=== PATIENT | male | born 1985 | race Asian ===

== ENCOUNTER 2022-08-20 12:52 | Emergency (ER) | payer MEDICAID ==
--- NOTE | 2022-08-20 13:10 | NUR ---
PATIENT TRIAGED. PT STABLE. PT WAITING IN ER LOBBY. DR MENDEZ AWARE OF PT.
[2022-08-20 13:11] VITALS: BP_SYST 146
--- NOTE | 2022-08-20 13:50 | NUR ---
PT PLACED IN BED 2, REPORT GIVEN TO DR MENDEZ AT BEDSIDE
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
[2022-08-20] MEDS ORDERED: KETOROLAC TROMETHAMINE 30 MG VIAL IM ONE (14:45)
[2022-08-20] MEDS ORDERED: CYCL10TA24 PO (15:23)
[2022-08-20] MEDS ORDERED: IBUP-1970 PO (15:23)
[2022-08-20] MEDS ORDERED: ACET-2634 PO (15:23)
[2022-08-20 15:47] VITALS: BP_SYST 148
--- NOTE | 2022-08-20 15:50 | NUR ---
Patient given written and verbal discharge instructions and verbalizes understanding. ER MD discussed with patient the results and treatment provided. Patient in stable condition. ID arm band removed. Rx of acetaminophen, cyclobenzaprine, and ibuprofen given. Patient educated on pain management and to follow up with PMD. Pain Scale 4 out of 10 . Opportunity for questions provided and answered. Medication side effect fact sheet provided.
--- NOTE | 2022-08-20 15:52 | NUR ---
Placed splint on patient with primary RN. 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 Taught how to take each one and when appropriate to drive, bike or operate heavy equipment.
== END 2022-08-20 15:50 | disposition home or self-care (01) ==
LOC: SED 12:52
DX: S43.122A Dislocation of left acromioclavicular joint, 100%-200% displacement, initial encounter (principal); Z88.5 Allergy status to narcotic agent; Z79.899 Other long term (current) drug therapy; V18.0XXA Pedal cycle driver injured in noncollision transport accident in nontraffic accident, initial encounter; Y93.89 Activity, other specified; Y92.89 Other specified places as the place of occurrence of the external cause; Y99.8 Other external cause status
CPT/HCPCS: 99283; 73030; 96372; J1885

== ENCOUNTER 2023-08-11 02:55 | Emergency (ER) | payer MEDICAID ==
[~2023-08-11] VITALS: Ht 175.3 cm; Wt 66.7 kg
[~2023-08-11 02:55] MED LIST: ACET-2634 PO; CYCL10TA24 PO; IBUP-1970 PO
[2023-08-11 03:00] VITALS: BP_SYST 153; PULSE 124; RESP 18; TEMP 98.3; O2SAT 97
[2023-08-11] MEDS: LABETALOL HCL 20 MG/4 ML CARTRIDGE IVP ONE (03:15)
[2023-08-11] MEDS: fentaNYL CITRATE/PF 100 MCG/2 ML AMP IVP ONE (03:36)
[2023-08-11] MEDS: NS 1000 ML IV.SOLN IV ONE (03:46)
[2023-08-11 04:41] LABS: ALANINE AMINOTRANSFERASE 172 U/L (12-78); ALBUMIN 4.2 g/dL (3.4-4.8); ANION GAP 20 (5-15); ASPARTATE AMINOTRANSFERASE 126 U/L (10-37); BILIRUBIN,DIRECT 0.2 mg/dL (0.0-0.3); CALCIUM 9.6 mg/dL (8.4-11.0); CARBON DIOXIDE 20 mmol/L (23-29); CHLORIDE 101 mmol/L (98-107); CREATININE 0.87 mg/dL (0.55-1.30); GFR AFRICAN AMERICAN 125 mL/min (>90); GLUCOSE 105 mg/dL (74-106); POTASSIUM 3.5 mmol/L (3.5-5.1); SODIUM SERUM 141 mmol/L (136-145); TOTAL BILIRUBIN 0.7 mg/dL (0.0-1.0); TOTAL PROTEIN, SERUM 8.2 g/dL (6.4-8.3); UREA NITROGEN, BLOOD 8 mg/dL (8-21)
[2023-08-11 04:42] LABS: GFR NON AFRICAN-AMERICAN 103 mL/min (>90)
[2023-08-11 04:45] LABS: PROTHROMBIN TIME 10.1 SECS (9.5-12.5)
[2023-08-11] MEDS: KETOROLAC TROMETHAMINE 30 MG VIAL IVP ONE (05:06)
[2023-08-11 05:15] LABS: BASOPHILS % (AUTO) 0.4 % (0.0-2.0); EOSINOPHILS % (AUTO) 0.3 % (0.0-4.0); HEMATOCRIT 47.7 % (36-54); HEMOGLOBIN 16.6 g/dL (14.0-18.0); LYMPHOCYTES # (AUTO) 0.9 K/uL (1.0-5.5); MEAN CORPUSCULAR HEMOGLOBIN 35 pg (27-31); MEAN CORPUSCULAR HGB CONC 35 % (32-36); MEAN CORPUSCULAR VOLUME 99 fL (79.0-98.0); MONOCYTES # (AUTO) 0.8 K/uL (0.0-1.0); MONOCYTES % (AUTO) 6.5 % (1.7-9.3); NEUTROPHILS # (AUTO) 9.8 K/uL (1.8-7.7); NEUTROPHILS % (AUTO) 84.8 % (40.0-70.0); PLATELET COUNT (AUTO) 310 K/uL (130-430); RED BLOOD CELL COUNT(AUTO) 4.81 MIL/uL (4.2-6.2); RED CELL DISTRIBUTION WIDTH 12.1 % (9.0-15.0); WHITE BLOOD COUNT (AUTO) 11.6 K/uL (4.8-10.8)
[2023-08-11] MEDS ORDERED: PIPERACILLIN/TAZOBACTAM 4.5 GM/VIAL (ZOSYN) IV ONE (05:22)
[2023-08-11] MEDS: LORazepam 2 MG/ML VIAL IVP ONE (05:37)
[2023-08-11] MEDS: PIPERACILLIN/TAZO 4.5 GM in NS 100 ML IV ONE (05:38)
[2023-08-11] MEDS: NACL 0.9% 1,000 ML IV ONE (08:12)
[2023-08-11 08:56] LABS: BILIRUBIN,URINE NEGATIVE (NEGATIVE); BLOOD, URINE NEGATIVE (NEGATIVE); COLOR,URINE YELLOW (YELLOW); GLUCOSE,URINE NEGATIVE (NEGATIVE); KETONES,URINE 2+ (NEGATIVE); LEUKOCYTE ESTERASE ,URINE NEGATIVE (NEGATIVE); NITRITE, URINE NEGATIVE (NEGATIVE); PH,URINE 5.5 (5.0-8.0); PROTEIN URINE TRACE (NEGATIVE); UROBILINOGEN,URINE 0.2 (0.2-1.0)
[2023-08-11] MEDS ORDERED: ACET-2634 PO (09:05)
[2023-08-11 09:10] LABS: CLARITY/URINE SLIGHTLY HAZY (CLEAR)
[2023-08-11 09:11] LABS: BACTERIA,URINE None Seen /HPF (None Seen); RBC,URINE 0-3 /HPF (0-3); URINE AMORPHOUS URATE 2+ /HPF (None Seen); WBC,URINE NONE SEEN /HPF (0-3)
[2023-08-11 09:19] LABS: BARBITURATE, URINE NEGATIVE (NEG <=200); BENZODIAZEPINE, URINE POSITIVE (NEG <=150); CANNABINOID, URINE POSITIVE (NEG <=50); COCAINE, URINE NEGATIVE (NEG <=150); METHAMPHETAMINES SCREEN,URINE NEGATIVE (NEG <=500); OPIATE, URINE NEGATIVE (NEG <=100); PHENCYCLIDINE SCREEN,URINE NEGATIVE (NEG <=25); UR TRICYCLIC ANTIDEPRESSANTS NEGATIVE (NEG <=300); URINE AMPHETAMINE NEGATIVE (NEG <=500); URINE METHADONE NEGATIVE (NEG <=200); URINE OXYCODONE SCREEN NEGATIVE (NEG <=100)
[2023-08-11 09:29] VITALS: BP_SYST 116; PULSE 68; RESP 18; TEMP 98.7; O2SAT 96
== END 2023-08-11 09:29 | disposition home or self-care (01) ==
LOC: SED 02:55
DX: A41.9 Sepsis, unspecified organism (principal); R51.9 Headache, unspecified; R11.0 Nausea; Z88.5 Allergy status to narcotic agent; Z79.899 Other long term (current) drug therapy
CPT/HCPCS: 99285; 70450; 96365; 96375; 96361; 71045; 80307; 80076; 80048; 81001; 85025; 85610; 85730; 87040; 87086; 84484; 36415; 93005; 72125; 83605; J1885; J2060; J2543; J3010; J7030; 81000; 81015

== ENCOUNTER 2023-09-11 14:23 | Inpatient (IN) | payer MEDICAID ==
[~2023-09-11] VITALS: Ht 175.3 cm; Wt 63.0 kg
[2023-09-11 14:30] VITALS: BP_SYST 132; PULSE 114; RESP 20; TEMP 98.3; O2SAT 96
[2023-09-11 15:09] LABS: BASOPHILS % (AUTO) 0.2 % (0.0-2.0); LYMPHOCYTES # (AUTO) 0.8 K/uL (1.0-5.5); LYMPHOCYTES % (AUTO) 3.3 % (20.5-51.5); MEAN CORPUSCULAR HEMOGLOBIN 34 pg (27-31); MEAN CORPUSCULAR HGB CONC 33 % (32-36); MEAN CORPUSCULAR VOLUME 101 fL (79.0-98.0); MONOCYTES # (AUTO) 0.6 K/uL (0.0-1.0); MONOCYTES % (AUTO) 2.6 % (1.7-9.3); NEUTROPHILS # (AUTO) 22.3 K/uL (1.8-7.7); NEUTROPHILS % (AUTO) 93.9 % (40.0-70.0); PLATELET COUNT (AUTO) 310 K/uL (130-430); RED BLOOD CELL COUNT(AUTO) 4.43 MIL/uL (4.2-6.2); RED CELL DISTRIBUTION WIDTH 12.2 % (9.0-15.0); WHITE BLOOD COUNT (AUTO) 23.7 K/uL (4.8-10.8)
[2023-09-11] MEDS: NACL 0.9% 1,000 ML IV ONE (15:09)
[2023-09-11] MEDS: KETOROLAC TROMETHAMINE 30 MG VIAL IVP ONE (15:37)
[2023-09-11 15:59] LABS: ALBUMIN 4.4 g/dL (3.4-4.8); BILIRUBIN,DIRECT 0.4 mg/dL (0.0-0.3); CALCIUM 8.9 mg/dL (8.4-11.0); CREATININE 1.11 mg/dL (0.55-1.30); POTASSIUM 4.2 mmol/L (3.5-5.1); TOTAL BILIRUBIN 1.2 mg/dL (0.0-1.0); TOTAL PROTEIN, SERUM 8.4 g/dL (6.4-8.3)
[2023-09-11 16:20] LABS: BILIRUBIN,URINE NEGATIVE (NEGATIVE); CLARITY/URINE CLEAR (CLEAR); COLOR,URINE YELLOW (YELLOW); GLUCOSE,URINE NEGATIVE (NEGATIVE); KETONES,URINE 3+ (NEGATIVE); LEUKOCYTE ESTERASE ,URINE NEGATIVE (NEGATIVE); NITRITE, URINE NEGATIVE (NEGATIVE); PROTEIN URINE TRACE (NEGATIVE); UROBILINOGEN,URINE 0.2 (0.2-1.0)
[2023-09-11 16:26] LABS: BLOOD, URINE TRACE (NEGATIVE)
[2023-09-11 16:47] LABS: RBC,URINE 0-3 /HPF (0-3); WBC,URINE 0-3 /HPF (0-3)
[2023-09-11 16:48] LABS: BACTERIA,URINE FEW /HPF (None Seen); FINE GRANULAR CASTS,URINE 0-10 /LPF (None Seen); MUCUS,URINE 1+ /LPF (None Seen)
[2023-09-11] MEDS ORDERED: PIPERACILLIN/TAZOBACTAM 3.375 GM/VIAL (ZOSYN) IV ONE (17:53)
[2023-09-11] MEDS: PIPERACILLIN/TAZO 3.375 GM in NS 50 ML IV ONE (17:56)
[2023-09-11 21:45] VITALS: BP_SYST 121; PULSE 92; RESP 18; TEMP 98.8; O2SAT 97
[2023-09-11 21:49] VITALS: BP_SYST 121; PULSE 92; RESP 18; TEMP 98.8
[2023-09-11 22:45] VITALS: O2SAT 97
[2023-09-11] MEDS: D5/0.45 NS 1,000 ML IV ONE (23:08)
[2023-09-11] MEDS ORDERED: ACETAMINOPHEN 325 MG TABLET PO PRN (23:15)
[2023-09-11] MEDS ORDERED: ONDANSETRON HCL 4 MG/2 ML VIAL IVP PRN (23:15)
[2023-09-11] MEDS: traZODone HCL 50 MG TABLET (DESYREL) PO PRN (23:21)
[2023-09-11] MEDS: D5/0.45 NS 1,000 ML IV SCH (23:52)
[2023-09-12 00:30] VITALS: BP_SYST 126; PULSE 71; RESP 18; TEMP 98.9
[2023-09-12] MEDS: PIPERACILLIN/TAZO 3.375 GM in D5W 50 ML IV SCH (05:50)
[2023-09-12] MEDS: PIPERACILLIN/TAZOBACTAM 3.375 GM/VIAL (ZOSYN) IV ONE (05:50)
== END 2023-09-12 07:35 | disposition left against medical advice (07) | DRG 720 ==
LOC: SED 14:23 → SMU 18:11
PROVIDERS: ADMIT Preventive Medicine Preventive Medicine/Occupational Environmental Medicine; ATTEND Preventive Medicine Preventive Medicine/Occupational Environmental Medicine
DX: A41.9 Sepsis, unspecified organism (principal); K76.0 Fatty (change of) liver, not elsewhere classified; R16.0 Hepatomegaly, not elsewhere classified; E80.6 Other disorders of bilirubin metabolism; N10 Acute pyelonephritis; R74.01 Elevation of levels of liver transaminase levels; Z53.29 Procedure and treatment not carried out because of patient's decision for other reasons; Z88.5 Allergy status to narcotic agent
CPT/HCPCS: 36415; 72100; 80048; 80076; 81000; 81001; 81015; 83605; 83690; 85025; 87040; 87086; 99285; J1885; J2543; J7060